=== PATIENT | female | born 2005 | race Caucasian/White ===

== ENCOUNTER 2024-06-21 19:19 | Emergency (ER) | payer MEDICAID ==
[~2024-06-21] VITALS: Ht 167.6 cm; Wt 56.0 kg
[2024-06-21 19:29] VITALS: BP 109/69; TEMP 36.9; O2SAT 99
[2024-06-21 19:31] VITALS: PULSE 98; RESP 16; O2SAT 98
[2024-06-21] MEDS ORDERED: ONDA-239 PO (22:45)
[2024-06-21] MEDS: ONDANSETRON 4MG ODT PO ONE (22:48)
== END 2024-06-21 22:59 | disposition home or self-care (01) ==
LOC: ER 19:19
DX: F41.9 Anxiety disorder, unspecified (principal)
CPT/HCPCS: 99283; 71045; 93005; Q0162

== ENCOUNTER 2024-12-14 00:16 | Emergency (ER) | payer MEDICAID ==
[~2024-12-14] VITALS: Ht 165.1 cm; Wt 54.0 kg
[~2024-12-14 00:16] MED LIST: ONDA-239 PO
[2024-12-14 00:29] VITALS: TEMP 36.9; O2SAT 98
[2024-12-14] MEDS: KETOROLAC 30MG/ML VIAL IM ONE (01:16)
[2024-12-14 01:43] LABS: BASOPHILS % 0.3 % (0.0-2.0); EOSINOPHILS % 2.2 % (0.0-5.0); HEMATOCRIT. 36.6 % (36.0-48.0); HEMOGLOBIN. 12.0 g/dL (12.0-16.0); LYMPHOCYTES % 19.7 % (20.0-50.0); MEAN PLATELET VOLUME 9.4 fl (7.4-10.4); MONOCYTES % 6.2 % (2.0-8.0); NEUTROPHILS % 71.6 % (40.0-76.0); PLATELET 212 x1000/uL (130-400); RED BLOOD CELL COUNT 4.16 mill/uL (4.2-5.4); RED CELL DISTRIBUTION WIDTH 16.4 % (11.6-14.6)
[2024-12-14 01:57] LABS: *AMPHETAMINES SCREEN URINE NEGATIVE (NEGATIVE)
[2024-12-14 01:57] LABS: TROPONIN I HIGH SENSITIVITY < 4 ng/L (3.0-34)
[2024-12-14 01:58] LABS: *BARBITURATES SCREEN URINE NEGATIVE (NEGATIVE); *BENZODIAZEPINES SCREEN URINE NEGATIVE (NEGATIVE); *COCAINE SCREEN URINE NEGATIVE (NEGATIVE); CANNABINOID URINE SCREEN NEGATIVE (NEGATIVE); ECSTASY MDMA SCREEN URINE NEGATIVE (NEGATIVE); METHADONE URINE SCREEN NEGATIVE (NEGATIVE); OPIATES URINE SCREEN NEGATIVE (NEGATIVE); PHENCYCLIDINE URINE SCREEN NEGATIVE (NEGATIVE)
[2024-12-14] MEDS: HYDROXYZINE 25MG TABLET PO ONE (02:39)
[2024-12-14 03:07] LABS: CREATININE 0.7 mg/dL (0.6-1.0); ETHANOL BLOOD < 10 mg/dL (<10); UREA NITROGEN BLOOD 5 mg/dL (9-23)
[2024-12-14 03:33] LABS: HCG SCREEN NEGATIVE
[2024-12-14] MEDS ORDERED: IBUP-2028 MT (04:28)
[2024-12-14 04:54] LABS: TROPONIN I HIGH SENSITIVITY < 4 ng/L (3.0-34)
[2024-12-14 05:06] VITALS: BP 101/66; PULSE 75; RESP 12; O2SAT 98
== END 2024-12-14 05:08 | disposition home or self-care (01) ==
LOC: ER 00:16
DX: R07.89 Other chest pain (principal); Z79.899 Other long term (current) drug therapy
CPT/HCPCS: 80305; 80048; 81025; 80320; 84703; 85025; 85379; 84484; 36415; 71045; 93005; 96372; 99285; J1885; G0480